=== PATIENT | female | born 2000 | race African-American/Black ===

== ENCOUNTER 2021-10-22 11:49 | Emergency (ER) | payer OTHER ==
[~2021-10-22] VITALS: Ht 167.6 cm; Wt 91.3 kg
[2021-10-22 11:50] VITALS: BP 119/71
[2021-10-22] MEDS ORDERED: ONDANSETRON 4MG ORAL DISINTEGRATING TAB PO ONE (15:10)
[2021-10-22 15:38] LABS: BASO % 0.3 % (0.0-1.0); HEMATOCRIT 42.8 % (36.0-47.0); HEMOGLOBIN 14.1 g/dl (12.0-15.5); LYMPH % 8.5 % (24.0-44.0); MEAN CORPUSCULAR HEMOGLOBIN 28.4 pg (27.0-33.0); MEAN CORPUSCULAR HGB CONC 32.9 g/dl (32.0-36.5); MEAN CORPUSCULAR VOLUME 86.1 fl (80.0-96.0); MONO # 0.2 10^3/uL (0.0-0.8); MONO % 1.8 % (2.0-8.0); NEUTROPHILS # 9.9 10^3/uL (1.5-8.5); NEUTROPHILS % 88.7 % (36.0-66.0); PLATELET COUNT, AUTOMATED 357 10^3/uL (150-450); RED BLOOD COUNT 4.97 10^6/uL (4.00-5.40); WHITE BLOOD COUNT 11.2 10^3/uL (4.0-10.0)
[2021-10-22] MEDS ORDERED: KETOROLAC 60MG 2ML VIAL IM ONE (16:00)
[2021-10-22 16:05] LABS: ALBUMIN 4.4 GM/DL (3.2-5.2); BILIRUBIN,DIRECT 0.1 MG/DL (0.0-0.2); BILIRUBIN,TOTAL 0.2 MG/DL (0.2-1.0); TOTAL PROTEIN 8.5 GM/DL (6.4-8.2)
[2021-10-22] MEDS ORDERED: KETOROLAC 30 MG/ML 1ML VIAL IM ONE (16:25)
[2021-10-22] MEDS ORDERED: ONDA4TAB6 PO (16:25)
== END 2021-10-22 16:42 | disposition home or self-care (01) ==
LOC: M ED 11:49
DX: R11.2 Nausea with vomiting, unspecified (principal); F10.129 Alcohol abuse with intoxication, unspecified
CPT/HCPCS: 80047; 80076; 83690; 84702; 85025; 96372; 99283; J1885